=== PATIENT | female | born 1950 | race Caucasian/White ===

== ENCOUNTER 2018-12-16 10:57 | Inpatient (IN) | payer MEDICARE ==
[2018-12-16] MEDS ORDERED: LIDOCAINE 1% (PF) 10 MG/ML (30 ML SDV) SQ ONE (12:24)
[2018-12-16] MEDS ORDERED: ASPIRIN 81 MG PO ONE (12:25)
[2018-12-16] MEDS ORDERED: MIDAZOLAM 2 MG/2 ML VIAL IVP ONE (12:25)
[2018-12-16] MEDS ORDERED: SODIUM CHLORIDE 0.9% 1,000 ML IV ONE (12:27)
[2018-12-16] MEDS ORDERED: BIVALIRUDIN BOLUS 250 MG/50 ML IV ONE (12:32)
[2018-12-16] MEDS ORDERED: BIVALIRUDIN 250 MG in SODIUM CHLORIDE 0.9% 37 ML IV ONE (12:32)
[2018-12-16] MEDS ORDERED: IOPAMIDOL-370 100ML BTL INJ ONE ×2 (12:49→13:11)
[2018-12-16] MEDS ORDERED: NITROGLYCERIN 1000MCG/10ML SYRINGE INTRACORON ONE ×2 (13:00)
[2018-12-16] MEDS ORDERED: CLOPIDOGREL 75 MG TAB PO ONE (13:08)
[2018-12-16] MEDS ORDERED: amLODIPine 5 MG TAB ONE (13:12)
[2018-12-16] MEDS ORDERED: RX INFO: IV CONTRAST WAS GIVEN 1 EACH MISC MISCELLANE PRN (13:13)
[2018-12-16] MEDS ORDERED: ZOLPIDEM 5 MG TAB PO PRN (13:13)
[2018-12-16] MEDS ORDERED: NITROGLYCERIN SL TABS 0.4 MG TAB SUBLINGUAL PRN (13:13)
[2018-12-16] MEDS ORDERED: MAG HYDROX/AL HYDROX/SIMETH 30 ML CUP PO PRN (13:13)
[2018-12-16] MEDS ORDERED: ATROPINE SULFATE 0.1 MG/ML 10ML SYRINGE IV PRN (13:13)
[2018-12-16] MEDS ORDERED: amLODIPine 5 MG TAB PO ONE (13:14)
[2018-12-16] MEDS: SODIUM CHLORIDE 0.9% 1,000 ML IV SCH (13:35)
--- NOTE | 2018-12-16 14:46 | PTCA ---
PERCUTANEOUSTRANS CORORONARY ANGIOGRAPHY DATE OF SERVICE: 12/16/2018. PROCEDURE PERFORMED: PTCA and stenting of a tortuous mid RCA. Drug-eluting stent was used. PERFORMED BY: Dr. Rico Flores. SEDATION: Moderate conscious sedation time was 48 minutes. The patient was administered Versed and oxygen saturation, hemodynamics and EKG were monitored closely. CLINICAL INFORMATION: Mrs. Misti Addison is a 68-year-old lady with a history of smoking. Which she has quit a few years ago. She also has hypertension and hypercholesterolemia. She presented to [facility] with unstable angina, had a cardiac cath which revealed a mid RCA lesion, very tortuous about 70% to 80% She was advised elective intervention and was advised to be discharged, but she had chest pain and therefore she was kept back. She also had some hypertension. After blood pressure was controlled, there was no additional pain. She did not have any chest pain or any troponin elevation. She was transferred here for PCI of mid RCA. The risks, benefits, options were explained carefully to the patient and her sister. PROCEDURE NOTE: Under local anesthesia and strict aseptic precautions, a 6-Belarusian introducer was placed in the right femoral artery. Standard right All guide catheter was used to cannulate the right coronary artery. A run-through wire was used to cross the lesion. Predilatation was performed with a 2.25 caliber 12 mm Trek balloon. Because of tortuosity, and inadequate guide support, I had some difficulty. I then tried to advance a 2.5 caliber 12 mm Xience stent, but again I had difficulty because of tortuosity. I therefore advanced another cameron wire and this was a Whisper wire. Over the Whisper wire, I advanced a 2.5 caliber stent. With this I was able to deploy it in the correct location and at 12 atmospheres. Patient had chest pain and inferior ST elevation. Excellent angiographic result was achieved without complication. There is another 40% lesion located in the proximal RCA before the origin of an acute marginal branch, but this was stable and therefore we did not address this. This does not appear to be a significant lesion. There is a moderate narrowing in the proximal RCA as well. Distal flow was excellent at the site of stenting. The residual stenosis was 0% with remarkably improvement in angiographic appearance and flow. Patient tolerated procedure well. Results were discussed with the patient and family. I expect she will be discharged tomorrow on a combination of aspirin, Plavix, statins, beta blockers and Norvasc and lisinopril. MMCONNERL / IJN: [id number] /
[2018-12-16] MEDS: LISINOPRIL 20 MG TAB PO SCH (20:37)
[2018-12-16] MEDS: amLODIPine 5 MG TAB PO SCH (20:37)
[2018-12-16] MEDS: METOPROLOL TARTRATE 25 MG TAB PO SCH (20:37)
[2018-12-16] MEDS ORDERED: ATORVASTATIN 80 MG TAB PO SCH (21:00)
[2018-12-17] MEDS: SODIUM CHLORIDE 0.9% 1,000 ML IV SCH (03:10)
[2018-12-17 06:41] LABS: Basophils % (A) 0 %; Eosinophils # (A) 0.2 k/uL (0-0.7); Eosinophils % (A) 2 %; HCT 44.1 % (34.0-46.0); HGB 14.2 gm/dL (11.4-16.0); Lymphocytes % (A) 19 %; MCH 29.1 pg (25.0-35.0); MCHC 32.3 g/dL (31.0-37.0); Mean Platelet Volume 10.5; Monocytes # (A) 0.7 k/uL (0-1.0); Monocytes % (A) 7 %; Neutrophils # (A) 7.4 k/uL (1.3-7.7); Neutrophils % (A) 71 %; Platelet Count 177 k/uL (150-450); RDW 13.9 % (11.5-15.5); WBC 10.5 k/uL (3.8-10.6)
[2018-12-17 06:53] LABS: Anion Gap 4 mmol/L; Blood Urea Nitrogen 26 mg/dL (7-17); Calcium 8.8 mg/dL (8.4-10.2); Carbon Dioxide 28 mmol/L (22-30); Chloride 106 mmol/L (98-107); Glucose 83 mg/dL (74-99); Potassium 3.8 mmol/L (3.5-5.1); Sodium 138 mmol/L (137-145)
[2018-12-17 07:48] LABS: Large Platelets Present
[2018-12-17] MEDS ORDERED: ASPIRIN 81 MG PO SCH (09:00)
[2018-12-17] MEDS ORDERED: CLOPIDOGREL 75 MG TAB PO SCH (09:00)
--- NOTE | 2018-12-17 09:30 | PN ---
PROGRESS NOTE Mr. Addison is a 68-year-old lady with a history of hypertension, hyperlipidemia, and chest discomfort, admitted to [facility], underwent a cardiac cath on 12/13/2018, which revealed a mid RCA lesion, very tortuous. She also had a moderate proximal lesion of 40% as well. She was advised intervention, brought in for the procedure yesterday. I performed PCI of mid RCA with a drug-eluting stent with excellent result. Postprocedure course was uneventful. Her blood pressure control was optimal. She is ambulating the hallways without symptoms this morning. Blood pressure is 130/70, pulse rate is 68 per minute, S1-S2 heard normally. Lungs reveal diminished air entry. Abdomen is soft. Lower extremities reveal diminished pulses. Right groin is clean and dry with a good pulse. Right radial site pulses palpable but there is a small hematoma. Central nervous system is normal. EKG does not reveal any acute changes. Sinus mechanism noted. LABORATORY DATA: Normal. RESULTS: The labs and EKGs were discussed with the patient. I reviewed with her the discharge medications and stressed the importance of dual antiplatelet therapy, statins and BP control. She will be discharged today after ambulation and seen by her primary care physician/admitting doctor, Dr. Mcmanus. She is advised to follow up with Dr. Tanner in a week and I will see her on 12/21 at 10:30 am in the office. Discharge instructions were given. MIKY / SMILEYN: [id number] /
[2018-12-17] MEDS: amLODIPine 5 MG TAB PO SCH (09:49)
[2018-12-17] MEDS: METOPROLOL TARTRATE 25 MG TAB PO SCH (09:50)
[2018-12-17] MEDS: LISINOPRIL 20 MG TAB PO SCH (09:50)
[2018-12-17 10:44] VITALS: RESP 18
[2018-12-17 10:59] VITALS: BMI 29.1
--- NOTE | 2018-12-17 11:31 | P.DS ---
Providers Date of admission: 12/16/18 12:26 Attending physician: Corine Mcmanus Consults: 12/16/18 12:27 Consult Physician Stat Consulting Provider: [facility] Consult Reason/Comments: Dr. Moe Flores Do you want consulting provider notified?: Already Contacted Placement Type Exists?: Yes 12/16/18 13:13 Consult Physician Routine Consulting Provider: [facility] Consult Reason/Comments: Post Interventional patient Do you want consulting provider notified?: Already Contacted Primary care physician: Stated None Hospital Course: Please refer to my HPI Plan - Discharge Summary Discharge Rx Participant: No New Discharge Prescriptions: New amLODIPine [Norvasc] 5 mg PO BID #180 tab Aspirin 81 mg PO DAILY #180 chew Atorvastatin [Lipitor] 80 mg PO HS #90 tab Clopidogrel [Plavix] 75 mg PO DAILY #90 tab Lisinopril [Zestril] 20 mg PO BID #180 tab Metoprolol Tartrate [Lopressor] 25 mg PO BID #180 tab Nitroglycerin Sl Tabs [Nitrostat] 0.4 mg SUBLINGUAL Q5M PRN #25 tab PRN Reason: Chest Pain Albuterol Inhaler [Ventolin Hfa Inhaler] 1 - 2 puff INHALATION Q6HR PRN #1 inhaler PRN Reason: Shortness Of Breath Or Wheezing Budesonide-Formot 160-4.5 Mcg [Symbicort 160-4.5 Mcg Inhaler] 2 puff INHALATION BID #1 inhaler Tiotropium [place] [Spiriva] 1 cap INHALATION DAILY #1 device predniSONE 10 mg PO DAILY #15 tab Continue Timolol Maleate [Timolol Maleate 0.5% Ophth Gel] 1 drop BOTH EYES DAILY Discontinued Lisinopril-Hctz 20-12.5 mg [Zestoretic 20-12.5] 1.5 tab PO DAILY predniSONE See Taper PO DIRECTED amLODIPine [Norvasc] 10 mg PO HS Metoprolol Tartrate [Lopressor] 25 mg PO DAILY Atorvastatin [Lipitor] 20 mg PO HS Discharge Medication List Timolol Maleate [Timolol Maleate 0.5% Ophth Gel] 1 drop BOTH EYES DAILY [History] Albuterol Inhaler [Ventolin Hfa Inhaler] 1 - 2 puff INHALATION Q6HR PRN #1 inhaler 12/17/18 [Rx] Aspirin 81 mg PO DAILY #180 chew 12/17/18 [Rx] Atorvastatin [Lipitor] 80 mg PO HS #90 tab 12/17/18 [Rx] Budesonide-Formot 160-4.5 Mcg [Symbicort 160-4.5 Mcg Inhaler] 2 puff INHALATION BID #1 inhaler 12/17/18 [Rx] Clopidogrel [Plavix] 75 mg PO DAILY #90 tab 12/17/18 [Rx] Lisinopril [Zestril] 20 mg PO BID #180 tab 12/17/18 [Rx] Metoprolol Tartrate [Lopressor] 25 mg PO BID #180 tab 12/17/18 [Rx] Nitroglycerin Sl Tabs [Nitrostat] 0.4 mg SUBLINGUAL Q5M PRN #25 tab 12/17/18 [Rx ] Tiotropium [place] [Spiriva] 1 cap INHALATION DAILY #1 device 12/17/18 [Rx] amLODIPine [Norvasc] 5 mg PO BID #180 tab 12/17/18 [Rx] predniSONE 10 mg PO DAILY #15 tab 12/17/18 [Rx] Follow up Appointment(s)/Referral(s): Malcolm Flores MD [STAFF PHYSICIAN] - 12/21/18 10:30 am Quinton Tanner MD [REFERRING] - 12/24/18 2:20 pm Ivan Flores MD [STAFF PHYSICIAN] - 01/03/19 10:00 am Patient Instructions/Handouts: *[facility] - After Heart Catheterization - Community Organization Director Instructions, Heart Healthy Diet (DC), Coronary Intravascular Stent Placement (DC) Discharge Disposition: HOME SELF-CARE
--- NOTE | 2018-12-17 11:31 | P.HPIM ---
History of Present Illness Patient is a pleasant 68-year-old female known to me from her hospitalization [facility] [place]. She presented to [facility] with some vague chest discomfort and short of breath, exertional feel stress test patient underwent cardiac catheterization which showed 60-70% stenosis of RCA patient was about to discharge was was complaining of chest pain because of that patient was transferred here underwent stenting of RCA. Patient received a drug-eluting stent. Patient had remote smoking history probably has COPD never diagnosed patient will need the pulmonary function testing as an outpatient patient will be discharged on short course of steroids along with albuterol, ipratropium. Review of Systems REVIEW OF SYSTEMS: CONSTITUTIONAL: No fever, no malaise, no fatigue. HEENT: No recent visual problems or hearing problems. Denied any sore throat. CARDIOVASCULAR: No chest pain, orthopnea, PND, no palpitations, no syncope. PULMONARY: No shortness of breath, no cough, no hemoptysis. GASTROINTESTINAL: No diarrhea, no nausea, no vomiting, no abdominal pain. NEUROLOGICAL: No headaches, no weakness, no numbness. HEMATOLOGICAL: Denies any bleeding or petechiae. GENITOURINARY: Denies any burning micturition, frequency, or urgency. MUSCULOSKELETAL/RHEUMATOLOGICAL: Denies any joint pain, swelling, or any muscle pain. ENDOCRINE: Denies any polyuria or polydipsia. The rest of the 14-point review of systems is negative. Past Medical History Past Medical History: Asthma, Chest Pain / Angina, Hypertension History of Any Multi-Drug Resistant Organisms: None Reported Past Surgical History: Heart Catheterization, Heart Catheterization With Stent Additional Past Surgical History / Comment(s): 12/16/18 PCI with stent to RCA, 12/13/18 cardiac cath-R radial approach with hematoma. Additional Past Anesthesia/Blood Transfusion Reaction / Comment(s): Pt has never had general or spinal anesthesia. Date of Last Stent Placement:: 12/16/18 Smoking Status: Former smoker - Past Family History Mother Family Medical History: Hypertension Additional Family Medical History / Comment(s): Mother is 99 yrs old. Father Family Medical History: Hypertension, Renal Disease Additional Family Medical History / Comment(s): Father's htn caused kidney damage from which he of at the age of 50yrs. Medications and Allergies Home Medications Medication Instructions Recorded Confirmed Type Timolol Maleate [Timolol Maleate 1 drop BOTH EYES DAILY 12/16/18 12/16/18 History 0.5% Ophth Gel] Albuterol Inhaler [Ventolin Hfa 1 - 2 puff INHALATION Q6HR PRN #1 12/17/18 Rx Inhaler] inhaler Aspirin 81 mg PO DAILY #180 chew 12/17/18 Rx Atorvastatin [Lipitor] 80 mg PO HS #90 tab 12/17/18 Rx Budesonide-Formot 160-4.5 Mcg 2 puff INHALATION BID #1 inhaler 12/17/18 Rx [Symbicort 160-4.5 Mcg Inhaler] Clopidogrel [Plavix] 75 mg PO DAILY #90 tab 12/17/18 Rx Lisinopril [Zestril] 20 mg PO BID #180 tab 12/17/18 Rx Metoprolol Tartrate [Lopressor] 25 mg PO BID #180 tab 12/17/18 Rx Nitroglycerin Sl Tabs [Nitrostat] 0.4 mg SUBLINGUAL Q5M PRN #25 tab 12/17/18 Rx Tiotropium [place] [Spiriva] 1 cap INHALATION DAILY #1 device 12/17/18 Rx amLODIPine [Norvasc] 5 mg PO BID #180 tab 12/17/18 Rx predniSONE 10 mg PO DAILY #15 tab 12/17/18 Rx Allergies Allergy/AdvReac Type Severity Reaction Status Date / Time No Known Drug Allergies Allergy Unknown Verified 12/16/18 14:23 Physical Exam Vitals: Vital Signs Temp Pulse Resp BP Pulse Ox 12/17/18 08:00 97.4 F L 71 18 136/83 97 12/17/18 04:45 97.1 F L 63 16 127/80 96 12/16/18 23:12 58 L 16 139/80 95 12/16/18 20:30 97.9 F 66 16 124/84 96 12/16/18 17:20 65 16 142/62 97 12/16/18 16:20 97 F L 67 16 132/59 98 12/16/18 15:20 65 16 132/65 97 12/16/18 14:50 69 16 134/75 96 12/16/18 14:20 63 16 154/82 96 12/16/18 14:05 62 16 172/88 97 12/16/18 13:50 60 16 159/80 97 12/16/18 13:35 96.6 F L 65 16 165/81 97 Intake and Output 12/16/18 12/17/18 12/17/18 22:59 06:59 14:59 Intake Total 525 240 Balance 525 240 Intake: Intake, IV Titration 525 Amount Sodium Chloride 0.9% 1, 525 000 ml @ 75 mls/hr IV . [id number] CHRISTOPHER Rx#:[id number] Oral 240 Other: Voiding Method Toilet Toilet # Voids 1 1 # Bowel Movements 1 Weight 84.3 kg 84.3 kg PHYSICAL EXAMINATION: GENERAL: The patient is alert and oriented x3, not in any acute distress. Well developed, well nourished. HEENT: Pupils are round and equally reacting to light. EOMI. No scleral icterus. No conjunctival pallor. Normocephalic, atraumatic. No pharyngeal erythema. No thyromegaly. CARDIOVASCULAR: S1 and S2 present. No murmurs, rubs, or gallops. PULMONARY: Chest is clear to auscultation, no wheezing or crackles. ABDOMEN: Soft, nontender, nondistended, normoactive bowel sounds. No palpable organomegaly. MUSCULOSKELETAL: No joint swelling or deformity. EXTREMITIES: No cyanosis, clubbing, or pedal edema. NEUROLOGICAL: Gross neurological examination did not reveal any focal deficits. SKIN: No rashes. Results CBC & Chem 7: 12/17/18 06:03 12/17/18 06:03 Labs: Abnormal Lab Results - Last 24 Hours (Table) 12/17/18 Range/Units 06:03 BUN 26 H (7-17) mg/dL Thrombosis Risk Factor Assmnt - Choose All That Apply Any of the Below Risk Factors Present?: Yes Each Factor Represents 1 point: Obesity (BMI >25) Other Risk Factors: Yes Each Risk Factor Represents 2 Points: Age 61-74 years, Patient confined to bed Other congenital or acquired thrombophilia - If yes, enter type in comment: No Thrombosis Risk Factor Assessment Total Risk Factor Score: 5 Thrombosis Risk Factor Assessment Level: High Risk Assessment and Plan Plan: -Unstable angina: Status post cardiac catheterization and stenting of RCA -COPD undiagnosed with minimal exacerbation -Hypertension -
[2018-12-17 12:39] VITALS: BP 111/72; PULSE 65; TEMP 97.2
== END 2018-12-17 14:47 | disposition home or self-care (01) | DRG 247 ==
LOC: 3SCARD 12:26
PROVIDERS: ADMIT Internal Medicine; ATTEND Internal Medicine
PROC: 027034Z Dilation of Coronary Artery, One Artery with Drug-eluting Intraluminal Device, Percutaneous Approach (ICD-10-PCS; principal; 2018-12-16 12:13)
DX: I25.110 Atherosclerotic heart disease of native coronary artery with unstable angina pectoris (principal); J44.9 Chronic obstructive pulmonary disease, unspecified; E78.00 Pure hypercholesterolemia, unspecified; E78.5 Hyperlipidemia, unspecified; I10 Essential (primary) hypertension; Z79.02 Long term (current) use of antithrombotics/antiplatelets; Z79.51 Long term (current) use of inhaled steroids; Z79.82 Long term (current) use of aspirin; Z79.899 Other long term (current) drug therapy; Z79.52 Long term (current) use of systemic steroids; Z87.891 Personal history of nicotine dependence; Z82.49 Family history of ischemic heart disease and other diseases of the circulatory system; Z84.1 Family history of disorders of kidney and ureter
CPT/HCPCS: 80048; 85025; C1874

== ENCOUNTER → 2020-03-19 | Outpatient (CLI) | payer MEDICARE ==
[2020-03-19 12:16] LABS: Potassium 4.3 mmol/L (3.5-5.1)
[2020-03-19 12:20] LABS: Basophils % (A) 0 %; Eosinophils # (A) 0.2 k/uL (0-0.7); Eosinophils % (A) 3 %; HCT 43.5 % (34.0-46.0); Lymphocytes # (A) 1.6 k/uL (1.0-4.8); Lymphocytes % (A) 20 %; MCH 29.2 pg (25.0-35.0); MCHC 32.2 g/dL (31.0-37.0); MCV 90.7 fL (80.0-100.0); Mean Platelet Volume 12.2; Monocytes # (A) 0.4 k/uL (0-1.0); Monocytes % (A) 6 %; Neutrophils # (A) 5.3 k/uL (1.3-7.7); Neutrophils % (A) 69 %; Platelet Count 212 k/uL (150-450); RDW 13.3 % (11.5-15.5); WBC 7.7 k/uL (3.8-10.6)
[2020-03-19 14:23] LABS: Large Platelets Present
== END | disposition home or self-care (01) ==
LOC: LABPAT 11:25
PROVIDERS: ATTEND Internal Medicine Interventional Cardiology
DX: Z01.818 Encounter for other preprocedural examination (principal); I25.118 Atherosclerotic heart disease of native coronary artery with other forms of angina pectoris
CPT/HCPCS: 80051; 82565; 84520; 85025; 87635

== ENCOUNTER 2020-03-22 08:50 | Day surgery (SDC) | payer MEDICARE ==
[2020-03-18 15:44] VITALS: BMI 25.0
[~2020-03-22 08:50] MED LIST: ALPRAZolam 0.25 MG TAB PO PRN; ALPRAZolam 0.5 MG TAB PO PRN; ASPIRIN 325 MG TAB PO ONE; NITROGLYCERIN SL TABS 0.4 MG TAB SUBLINGUAL PRN; SODIUM CHLORIDE 0.9% 1,000 ML in EMPTY BAG 1 BAG IV ONE
[2020-03-22 09:36] LABS: Basophils % (A) 0 %; Eosinophils # (A) 0.4 k/uL (0-0.7); Eosinophils % (A) 4 %; HCT 42.8 % (34.0-46.0); HGB 13.6 gm/dL (11.4-16.0); Lymphocytes # (A) 1.7 k/uL (1.0-4.8); Lymphocytes % (A) 19 %; MCH 28.4 pg (25.0-35.0); MCHC 31.7 g/dL (31.0-37.0); MCV 89.5 fL (80.0-100.0); Mean Platelet Volume 11.4; Monocytes # (A) 0.5 k/uL (0-1.0); Monocytes % (A) 5 %; Neutrophils % (A) 69 %; Platelet Count 228 k/uL (150-450); RBC 4.79 m/uL (3.80-5.40); RDW 13.5 % (11.5-15.5); WBC 8.7 k/uL (3.8-10.6)
[2020-03-22 09:45] LABS: Large Platelets Present
[2020-03-22 09:46] LABS: Calcium 9.2 mg/dL (8.4-10.2)
[2020-03-22 09:53] LABS: Potassium 4.6 mmol/L (3.5-5.1)
[2020-03-22] MEDS ORDERED: LIDOCAINE 1% INJ 10MG/ML (20 ML MDV) ONE (10:19)
[2020-03-22] MEDS ORDERED: MIDAZOLAM 2 MG/2 ML VIAL IVP ONE (10:44)
[2020-03-22] MEDS ORDERED: LIDOCAINE 1% INJ 10MG/ML (20 ML MDV) SQ ONE (10:48)
[2020-03-22] MEDS ORDERED: BIVALIRUDIN BOLUS 250 MG/50 ML IV ONE (11:09)
[2020-03-22] MEDS ORDERED: BIVALIRUDIN 250 MG in SODIUM CHLORIDE 0.9% 50 ML IV ONE (11:09)
[2020-03-22] MEDS ORDERED: CLOPIDOGREL 75 MG TAB ONE (11:12)
[2020-03-22] MEDS ORDERED: CLOPIDOGREL 75 MG TAB PO ONE (11:18)
[2020-03-22] MEDS ORDERED: NITROGLYCERIN 1000MCG/10ML SYRINGE INTRACORON ONE (11:19)
[2020-03-22] MEDS ORDERED: IOPAMIDOL-370 100ML BTL INJ ONE (11:22)
[2020-03-22] MEDS ORDERED: MAG HYDROX/AL HYDROX/SIMETH 30 ML CUP PO PRN (11:29)
[2020-03-22] MEDS ORDERED: ZOLPIDEM 5 MG TAB PO PRN (11:29)
[2020-03-22] MEDS ORDERED: ATROPINE SULFATE 0.1 MG/ML 10ML SYRINGE IV PRN (11:29)
[2020-03-22] MEDS ORDERED: RX INFO: IV CONTRAST WAS GIVEN 1 EACH MISC MISCELLANE PRN (11:29)
[2020-03-22] MEDS ORDERED: NITROGLYCERIN SL TABS 0.4 MG TAB SUBLINGUAL PRN ×2 (11:29→16:41)
--- NOTE | 2020-03-22 15:41 | CC ---
CARDIAC CATHETERIZATION REPORT DATE OF SERVICE: 03/22/2020 PROCEDURES: 1. Left heart catheterization and coronary angiography. 2. Percutaneous transluminal coronary angioplasty and stenting of a calcified proximal right coronary artery with a drug-eluting stent. PERFORMED BY: Dr. Rico Flores. Moderate conscious sedation time was 41 minutes. Patient was administered Versed. Oxygen saturation, hemodynamics and EKG were monitored closely. CLINICAL INFORMATION: Mrs. Misti Addison is a 69-year-old lady with a past history of smoking, hypertension and hyperlipidemia who presented with unstable angina in December to [facility] and underwent cardiac catheterization which revealed an 80% mid RCA lesion. There was a 40% proximal RCA which was calcified. I performed stenting of the mid RCA. It was a tortuous vessel, somewhat difficult. I had to use a cameron wire to get down to the mid RCA. Excellent angiographic result was achieved. Left system was free of significant disease. She has been doing well but is having symptoms of chest tightness and pressure, and a recent stress test revealed inferolateral reversible defect suggestive of ischemia. I was concerned that the proximal lesion may be worse, and therefore I brought her in for the procedure electively. Risks, benefits, options and rationale were explained to the patient and family in detail. PROCEDURE NOTE: Under local anesthesia and strict aseptic precautions, a 6-Cuban introducer was placed in the right femoral artery. Using standard All catheters, I performed coronary angiography, and a pigtail catheter was used to check LV pressure. LV gram was not performed. Following the cardiac cath procedure, I went on to perform PCI of proximal RCA, which was a calcified eccentric 70% to 80% lesion which had worsened from the previous angiogram. LV gram was not performed. LV pressures were checked. CARDIAC CATHETERIZATION FINDINGS: The left ventricular end-diastolic pressure was about 12 to 13 mmHg without any gradient across the aortic valve. CORONARY ANGIOGRAPHY FINDINGS: RIGHT CORONARY ARTERY: Dominant vessel, heavily calcified, proximally has a very eccentric lesion best seen in the AP cranial projection of about 80%, and there is a small acute marginal and a conus branch that comes off and seems to camouflage the lesion. The lesion is about at least 80% in multiple views, eccentric and heavily calcified. Beyond it the caliber improves, and in the mid portion at the site of previous stenting, the vessel is widely patent and distally it gives off a large PDA branch that supplies a sizable amount of myocardium. The RCA therefore proximally has an 80% eccentric calcified lesion and mid RCA that was stented is widely patent. LEFT MAIN CORONARY ARTERY: This is a short patent vessel, bifurcates into LAD and circumflex. No significant disease. LEFT ANTERIOR DESCENDING CORONARY ARTERY: Good-caliber vessel extends along the anterior wall, gives off septal and diagonal branches. Tortuous LAD system. No significant disease. Only minor irregularities noted. LEFT POSTERIOR CIRCUMFLEX CORONARY ARTERY: Technically a nondominant vessel, gives off a first obtuse marginal, free of significant disease. Then there is a 35% smooth narrowing, after which the caliber improves and the vessel continues distally as a small posterolateral branch and a groove branch. A 35% mid circumflex lesion. Mild calcification. Obtuse marginals are free of significant disease. LEFT VENTRICULOGRAM: Left ventriculogram was not performed. FINAL IMPRESSION: This patient has a 70% to 80% proximal calcified RCA eccentric lesion, and mid RCA that was stented is widely patent. RCA is a dominant vessel. Left system has about a 35% to 40% mid circumflex after the first obtuse marginal. Left main and LAD are free of significant disease. Filling pressures are normal and there is no gradient across the aortic valve. RECOMMENDATIONS: I recommended PCI of RCA that was performed in the same setting. PERCUTANEOUS CORONARY INTERVENTION PROCEDURE DETAILS: I used a standard right All guide catheter of 6-Cuban caliber to cannulate the right coronary artery and a run-through wire was used to cross the lesion. Without predilatation, a 15 mm long 3.0 caliber Xience stent was deployed in the calcified proximal RCA. The patient had chest pain and inferior ST elevation. She received Angiomax bolus and infusion as per protocol. An additional 300 mg of Plavix was given. She was already on aspirin and Plavix. After I deployed the stent, I noted that the stent was not well expanded in the mid portion. I then used a 3.25 caliber 15 mm long NC Trek balloon, and with this I gave a high-pressure inflation up to 14 atmospheres. The patient's vessel opened up very nicely. Excellent angiographic result was achieved without any residual stenosis. The sheath was then sutured and she was sent to the room in stable condition. The sheath will be pulled in about 2 hours and she will have a Femstop after that. Excellent angiographic result without complication was achieved. Results were discussed with the patient and family/friend. I expect she will be discharged tomorrow if she remains stable on the same medical regimen. MIKY / JIMMY: [id number] /
[2020-03-22] MEDS: SODIUM CHLORIDE 0.9% 1,000 ML IV SCH (19:36)
[2020-03-22] MEDS: LISINOPRIL 20 MG TAB PO SCH (20:06)
[2020-03-22] MEDS: METOPROLOL TARTRATE 25 MG TAB PO SCH (20:06)
[2020-03-22] MEDS: SYMBICORT 160-4.5 MCG INHALER INHALATION SCH (20:39)
[2020-03-22] MEDS ORDERED: ATORVASTATIN 80 MG TAB PO SCH (21:00)
[2020-03-22] MEDS ORDERED: MONTELUKAST 10 MG TAB PO SCH (21:00)
[2020-03-23] MEDS: SODIUM CHLORIDE 0.9% 1,000 ML IV SCH (05:48)
[2020-03-23 06:47] LABS: Calcium 8.8 mg/dL (8.4-10.2); Potassium 3.7 mmol/L (3.5-5.1)
[2020-03-23 06:56] LABS: Basophils % (A) 0 %; Eosinophils # (A) 0.4 k/uL (0-0.7); Eosinophils % (A) 4 %; HCT 39.3 % (34.0-46.0); HGB 12.6 gm/dL (11.4-16.0); Lymphocytes # (A) 1.8 k/uL (1.0-4.8); Lymphocytes % (A) 23 %; MCH 29.2 pg (25.0-35.0); MCV 91.3 fL (80.0-100.0); Mean Platelet Volume 12.2; Monocytes # (A) 0.4 k/uL (0-1.0); Monocytes % (A) 6 %; Neutrophils # (A) 5.2 k/uL (1.3-7.7); Neutrophils % (A) 66 %; Platelet Count 191 k/uL (150-450); RBC 4.31 m/uL (3.80-5.40); RDW 13.5 % (11.5-15.5)
[2020-03-23] MEDS: METOPROLOL TARTRATE 25 MG TAB PO SCH (07:57)
[2020-03-23] MEDS: LISINOPRIL 20 MG TAB PO SCH (07:57)
[2020-03-23] MEDS: SYMBICORT 160-4.5 MCG INHALER INHALATION SCH (08:05)
[2020-03-23 08:06] VITALS: BP 152/80; PULSE 60; RESP 16; TEMP 98.4
[2020-03-23] MEDS: IPRATROPIUM 0.5 MG/2.5 ML NEBU INHALATION SCH ×2 (08:07→11:34)
[2020-03-23 08:55] LABS: Large Platelets Present
[2020-03-23] MEDS ORDERED: amLODIPine 5 MG TAB PO SCH (09:00)
[2020-03-23] MEDS ORDERED: HYDROCHLOROTHIAZIDE 25 MG TAB PO SCH (09:00)
[2020-03-23] MEDS ORDERED: ASPIRIN 81 MG PO SCH (09:00)
[2020-03-23] MEDS ORDERED: CLOPIDOGREL 75 MG TAB PO SCH (09:00)
[2020-03-23] MEDS ORDERED: TIMOLOL 0.5% OPHTH DROPS 5 ML BTL BOTH EYES SCH (09:00)
--- NOTE | 2020-03-23 10:29 | P.DS ---
Providers Attending physician: Malcolm Flores Consults: 03/22/20 11:29 Consult Physician Routine Consulting Provider: [facility] Consult Reason/Comments: Post Interventional patient Do you want consulting provider notified?: Already Contacted Primary care physician: Ciro Rosa [facility] Course: This is a pleasant 69-year-old female who was brought in for cardiac catheterization yesterday revealing calcified proximal RCA with eccentric lesion 80%. She underwent successful PCI with drug eluting stent. She was dual anti-platelet therapy prior to admission. She is seen and examined resting comfortably in no acute distress. She denies chest pain, shortness of breath, dizziness or palpitations. EKG obtained this morning revealed sinus mechanism with poor R wave progression and no ischemic changes. Blood pressure 152/80 heart rate 60 afebrile and maintaining oxygen saturation on room air. Amlodipine was added to her shannen regimen this morning for optimal blood pressure control. Otherwise maintained on aspirin 81 mg daily, atorvastatin 80 mg at bedtime, Plavix 75 mg daily, hydrochlorothiazide 25 mg daily, lisinopril 20 mg twice a day and metoprolol 25 mg twice a day. Laboratory data reviewed, WBC 8.0, hemoglobin 12.6, platelets 191, sodium 136, potassium 3.7, creatinine 0.87. GENERAL: Well-appearing, well-nourished and in no acute distress. NECK: Supple without JVD or thyromegaly. LUNGS: Breath sounds clear to auscultation bilaterally. Respiration equal and unlabored. No wheezes, rales or rhonchi. HEART: Regular rate and rhythm without murmurs, rubs or gallops. S1 and S2 heard . EXTREMITIES: Normal range of motion, no edema. No clubbing or cyanosis. Peripheral pulses intact. Right groin is soft, nontender, no bleeding, no ecchymosis or hematoma. Distal pulses intact. ASSESSMENT Coronary artery disease status post PCI maintained on dual antiplatelet therapy PLAN Stable for discharge home. The importance of dual antiplatelet therapy discussed. Follow-up in the office with Dr. Flores next week. Appointment has been made prior to discharge. New prescription for amlodipine and nitroglycerin tablets sent to the patient's pharmacy. Nurse Practitioner note has been reviewed, I agree with a documented findings and plan of care. Patient was seen and examined. Plan - Discharge Summary Discharge Rx Participant: Yes New Discharge Prescriptions: New amLODIPine [Norvasc] 5 mg PO DAILY #60 tab Continue Timolol Maleate [Timolol Maleate 0.5% Ophth Gel] 1 drop BOTH EYES DAILY Aspirin 81 mg PO DAILY #180 chew Atorvastatin [Lipitor] 80 mg PO HS #90 tab Clopidogrel [Plavix] 75 mg PO DAILY #90 tab Lisinopril [Zestril] 20 mg PO BID #180 tab Metoprolol Tartrate [Lopressor] 25 mg PO BID #180 tab Albuterol Inhaler (Mhu) [Ventolin Hfa Inhaler (u)] 1 - 2 puff INHALATION Q6HR PRN #1 inhaler PRN Reason: Shortness Of Breath Or Wheezing Budesonide-Formot 160-4.5 Mcg [Symbicort 160-4.5 Mcg Inhaler] 2 puff INHALATION BID #1 inhaler Tiotropium [place] [Spiriva] 1 cap INHALATION DAILY #1 device Montelukast [Singulair] 10 mg PO HS Hydrochlorothiazide [Hydrodiuril] 25 mg PO DAILY Nitroglycerin Sl Tabs [Nitrostat] 0.4 mg SUBLINGUAL Q5M PRN #1 bottle PRN Reason: Chest Pain Discharge Medication List Timolol Maleate [Timolol Maleate 0.5% Ophth Gel] 1 drop BOTH EYES DAILY 12/16/18 [History] Albuterol Inhaler (u) [Ventolin Hfa Inhaler ([facility])] 1 - 2 puff INHALATION Q6HR PRN #1 inhaler 12/17/18 [Rx] Aspirin 81 mg PO DAILY #180 chew 12/17/18 [Rx] Atorvastatin [Lipitor] 80 mg PO HS #90 tab 12/17/18 [Rx] Budesonide-Formot 160-4.5 Mcg [Symbicort 160-4.5 Mcg Inhaler] 2 puff INHALATION BID #1 inhaler 12/17/18 [Rx] Clopidogrel [Plavix] 75 mg PO DAILY #90 tab 12/17/18 [Rx] Lisinopril [Zestril] 20 mg PO BID #180 tab 12/17/18 [Rx] Metoprolol Tartrate [Lopressor] 25 mg PO BID #180 tab 12/17/18 [Rx] Tiotropium [place] [Spiriva] 1 cap INHALATION DAILY #1 device 02/12/19 [Rx] Hydrochlorothiazide [Hydrodiuril] 25 mg PO DAILY 03/18/20 [History] Montelukast [Singulair] 10 mg PO HS 03/18/20 [History] Nitroglycerin Sl Tabs [Nitrostat] 0.4 mg SUBLINGUAL Q5M PRN #1 bottle 03/23/20 [Rx] amLODIPine [Norvasc] 5 mg PO DAILY #60 tab 03/23/20 [Rx] Follow up Appointment(s)/Referral(s): Malcolm Flores MD [STAFF PHYSICIAN] - 03/26/20 2:00 pm (SUNDAY ) Patient Instructions/Handouts: *[facility] - After Heart Catheterization - Shop Worker Instructions, Safe Use of Antiplatelet Medication (DC)
== END 2020-03-23 11:57 | disposition home or self-care (01) ==
LOC: CATHCVL 08:50 → 3SCARD 18:20 → CATHCVL 03-23 11:57
PROVIDERS: ATTEND Internal Medicine Interventional Cardiology
DX: I25.110 Atherosclerotic heart disease of native coronary artery with unstable angina pectoris (principal); R07.89 Other chest pain; R94.39 Abnormal result of other cardiovascular function study; R94.31 Abnormal electrocardiogram [ECG] [EKG]; I77.1 Stricture of artery; I10 Essential (primary) hypertension; E78.5 Hyperlipidemia, unspecified; I27.20 Pulmonary hypertension, unspecified; I34.0 Nonrheumatic mitral (valve) insufficiency; E78.00 Pure hypercholesterolemia, unspecified; J44.9 Chronic obstructive pulmonary disease, unspecified; Z95.5 Presence of coronary angioplasty implant and graft; Z87.891 Personal history of nicotine dependence; Z79.899 Other long term (current) drug therapy; Z79.51 Long term (current) use of inhaled steroids; Z79.02 Long term (current) use of antithrombotics/antiplatelets; Z79.82 Long term (current) use of aspirin; Z82.49 Family history of ischemic heart disease and other diseases of the circulatory system
CPT/HCPCS: 94640 ×2; 93458; 80048 ×2; 85025 ×2; C9600; C1769 ×4; C1887; C1725; C1894; C1874; J2250; J2001; J0583; Q9967